=== PATIENT | female | born 1970 | race Caucasian/White ===

== ENCOUNTER 2016-07-18 16:34 | Emergency (ER) | payer OTHER ==
[~2016-07-18] VITALS: Ht 162.6 cm; Wt 86.8 kg
[~2016-07-18 16:34] MED LIST: APIX5TAB PO; FAMO20TA37 PO; FLUO40CA9 PO; LEVO125T5 PO; OXYC5TAB3 PO
[2016-07-18] MEDS ORDERED: SODIUM CHLORIDE FLUSH 10ML SYR IVF ONE (17:00)
[2016-07-18] MEDS ORDERED: SODIUM CHLORIDE 0.9% 1,000ML IVBOLUS ONE (17:00)
[2016-07-18] MEDS ORDERED: DIAZEPAM 5 MG TABLET PO ONE (17:00)
[2016-07-18 17:35] LABS: ASPARTATE AMINO TRANSFERASE 13 U/L (15-37); BLOOD UREA NITROGEN 15 mg/dL (7-18)
[2016-07-18 17:40] LABS: IS PT STATUS REG ER OR PRE ER? YES
[2016-07-18 18:14] VITALS: BP 122/71
== END 2016-07-18 18:17 | disposition home or self-care (01) ==
LOC: ED 17:58
DX: R07.89 Other chest pain (principal); F32.9 Major depressive disorder, single episode, unspecified; Z86.711 Personal history of pulmonary embolism; Z79.01 Long term (current) use of anticoagulants
CPT/HCPCS: 36415; 71020; 80053; 83880; 84484; 85025; 93005

== ENCOUNTER 2017-05-20 19:30 | Emergency (ER) | payer OTHER ==
[~2017-05-20] VITALS: Ht 170.2 cm; Wt 126.8 kg
[2017-05-20 19:32] VITALS: BP 161/86
[2017-05-20] MEDS ORDERED: ASPI-515 PO (20:02)
== END 2017-05-20 22:02 | disposition home or self-care (01) ==
LOC: ED 21:55
DX: M79.661 Pain in right lower leg (principal); E03.9 Hypothyroidism, unspecified; Z86.711 Personal history of pulmonary embolism; Z86.718 Personal history of other venous thrombosis and embolism
CPT/HCPCS: 99284

== ENCOUNTER 2018-01-20 18:41 | Emergency (ER) | payer OTHER ==
[~2018-01-20] VITALS: Ht 170.2 cm; Wt 129.1 kg
[~2018-01-20 18:41] MED LIST changes: +ASPI-515 PO
[2018-01-20] MEDS ORDERED: FLUO60TA PO (18:59)
[2018-01-20 19:58] VITALS: BP 106/69
== END 2018-01-20 20:01 | disposition home or self-care (01) ==
LOC: ED 19:59
DX: M54.31 Sciatica, right side (principal); E03.9 Hypothyroidism, unspecified; Z86.718 Personal history of other venous thrombosis and embolism; Z86.711 Personal history of pulmonary embolism
CPT/HCPCS: 99284

== ENCOUNTER → 2018-05-07 | Outpatient (CLI) | payer OTHER ==
[~2018-05-07] MED LIST changes: +FLUO60TA PO
== END | disposition home or self-care (01) ==
LOC: CFH 09:53
PROVIDERS: ATTEND Obstetrics & Gynecology
DX: Z12.31 Encounter for screening mammogram for malignant neoplasm of breast (principal)
CPT/HCPCS: 77067